=== PATIENT | male | born 1995 | race Two or more races ===

== ENCOUNTER 2018-09-01 00:06 | Emergency (ER) | payer OTHER ==
[~2018-09-01] VITALS: Ht 182.9 cm; Wt 78.9 kg
[2018-09-01 00:14] VITALS: Ht 182.9 cm; Wt 78.9 kg
[2018-09-01 01:02] VITALS: BP 122/64
== END 2018-09-01 01:01 | disposition home or self-care (01) ==
LOC: ED 00:06
DX: S16.1XXA Strain of muscle, fascia and tendon at neck level, initial encounter (principal); X58.XXXA Exposure to other specified factors, initial encounter; Y93.41 Activity, dancing; Y92.89 Other specified places as the place of occurrence of the external cause; Y99.8 Other external cause status

== ENCOUNTER 2020-07-05 22:55 | Emergency (ER) | payer OTHER ==
[~2020-07-05] VITALS: Ht 182.9 cm; Wt 92.5 kg
[2020-07-05 23:03] VITALS: Ht 182.9 cm; Wt 92.5 kg
[2020-07-06 01:15] LABS: BASOPHIL % 0.4 % (0.2-1.5); PLATELET COUNT 300 x10^3mcL (152-348); RED CELL DISTRIBUTION WIDTH 13.6 % (12.1-16.2)
[2020-07-06 01:17] LABS: UA SPECIFIC GRAVITY <=1.005 (1.005-1.035); microscopic required? YES; urine erythrocyte 1+ (NEGATIVE)
[2020-07-06 01:52] LABS: CARBON DIOXIDE 26.3 mmol/L (21-32); CREATININE SERUM 1.9 mg/dL (0.7-1.3); POTASSIUM SERUM 3.2 mmol/L (3.5-5.1)
[2020-07-06 01:56] LABS: ALBUMIN 4.3 g/dL (3.4-5.0); BILIRUBIN TOTAL 0.54 mg/dL (0.20-1.00)
[2020-07-06 01:57] LABS: TOTAL PROTEIN, SERUM 8.3 g/dL (6.4-8.2)
[2020-07-06] MEDS ORDERED: NOR10T PO (02:42)
[2020-07-06 02:57] VITALS: BP 128/82
== END 2020-07-06 02:57 | disposition home or self-care (01) ==
LOC: ED 22:55
PROVIDERS: Emergency Medicine
DX: K62.89 Other specified diseases of anus and rectum (principal); R10.9 Unspecified abdominal pain; R30.0 Dysuria
CPT/HCPCS: 87491; 87591; Q9967

== ENCOUNTER 2020-07-08 11:25 | Emergency (ER) | payer OTHER ==
[~2020-07-08] VITALS: Ht 182.9 cm; Wt 90.7 kg
[~2020-07-08 11:25] MED LIST: NOR10T PO
[2020-07-08 11:37] VITALS: Ht 182.9 cm; Wt 90.7 kg
[2020-07-08] MEDS ORDERED: ZOFRAN4 M3 PO (12:25)
[2020-07-08 12:36] VITALS: BP 129/80
[2020-07-08 13:18] LABS: microscopic required? YES; urine erythrocyte 3+ (NEGATIVE)
== END 2020-07-08 12:36 | disposition home or self-care (01) ==
LOC: ED 11:25
PROVIDERS: Emergency Medicine
DX: N12 Tubulo-interstitial nephritis, not specified as acute or chronic (principal)